=== PATIENT | female | born 1945 | race Caucasian/White ===

== ENCOUNTER 2017-06-12 09:15 | Inpatient (IN) | payer OTHER ==
[2017-06-08 14:37] VITALS: BMI 31.4
[2017-06-12] VITALS (22 sets, daily range): BP systolic 93–158; BP diastolic 44–77; PULSE 52–80; RESP 12–18; Ht 162.6 cm; Wt 83.4 kg
[~2017-06-12] VITALS: Ht 162.6 cm; Wt 83.4 kg
[~2017-06-12 09:15] MED LIST: CEFAZOLIN 2 GM/50 ML (PMX) 50 ML IVPB SCH; LACTATED RINGER'S 1,000 ML IV* SCH; TRANEXAMIC ACID 1,000 MG in NS AT CLOSURE X1 IVPB ONE; TRANEXAMIC ACID 1,000 MG in NS AT INCISION X1 IVPB ONE
--- NOTE | 2017-06-12 09:32 | HPN ---
Date/Time of Note Date/Time of Note DATE: 06/12/17 TIME: 09:32 Interval H&P Admission Note Pt. seen H&P reviewed: No system changes STACEY LOMBARDO PA-C Jun 12, 2017 09:32
[2017-06-12] MEDS ORDERED: MAXZ25 PO (09:44)
[2017-06-12] MEDS ORDERED: CITA20TA11 PO (09:44)
[2017-06-12] MEDS ORDERED: OXYB10TA6 PO (09:45)
[2017-06-12] MEDS ORDERED: LORA1TAB PO (09:45)
[2017-06-12] MEDS ORDERED: LYRI100 PO (09:46)
[2017-06-12] MEDS ORDERED: MIRT30TA5 PO (09:47)
[2017-06-12] MEDS ORDERED: MULTI PO (09:51)
[2017-06-12] MEDS ORDERED: FERGON PO (09:52)
[2017-06-12] MEDS ORDERED: POLYMYXIN/BACITRACIN 1L IRRIG ONE (11:51)
[2017-06-12] MEDS ORDERED: morphine SULFATE/PF (10 MG/10 ML) INJ ONE (11:51)
[2017-06-12] MEDS ORDERED: BUPIVACAINE 0.5%/EPI (SDV) 30 ML INJ ONE (11:51)
[2017-06-12] MEDS ORDERED: KETOROLAC 30 MG INJ ONE (11:51)
[2017-06-12] MEDS ORDERED: LABETALOL HCL 20MG INJ IV PRN (12:00)
[2017-06-12] MEDS ORDERED: METOCLOPRAMIDE 10 MG INJ IV PRN (12:00)
[2017-06-12] MEDS ORDERED: OXYCODONE/ACETAMINOPHEN (5/325) TAB PO PRN ×2 (12:00)
[2017-06-12] MEDS ORDERED: MEPERIDINE 25 MG INJ IV PRN (12:00)
[2017-06-12] MEDS ORDERED: FENTAnyl 50 MCG/ML VIAL IV PRN ×3 (12:00)
[2017-06-12] MEDS ORDERED: EPHEDrine SULFATE 50 MG/5 ML SYG IV PRN (12:00)
[2017-06-12] MEDS ORDERED: KETOROLAC 30 MG INJ IV PRN (12:00)
[2017-06-12] MEDS ORDERED: hydrALAzine 20 MG INJ IV PRN (12:00)
[2017-06-12] MEDS ORDERED: HYDROmorphONE (0.2 MG/ML) 10ML SYG IV PRN ×3 (12:00)
[2017-06-12] MEDS ORDERED: DIPHENHYDRAMINE 50 MG INJ IV PRN (12:00)
[2017-06-12] MEDS ORDERED: ONDANSETRON 4 MG INJ IV PRN (12:00)
[2017-06-12] MEDS ORDERED: MIDAZOLAM 1 MG/ML 2 ML INJ ONE (12:17)
[2017-06-12] MEDS ORDERED: FENTAnyl 50 MCG/ML VIAL ONE (12:18)
[2017-06-12] MEDS ORDERED: PHENYLephrine (100 MCG/ML) 5ML SYG ONE (12:25)
[2017-06-12] MEDS ORDERED: ROCURONIUM 50 MG INJ ONE (12:41)
[2017-06-12] MEDS ORDERED: PROPOFOL 100 ML ONE (12:41)
[2017-06-12] MEDS ORDERED: LIDOCAINE 2% (SDV) 5 ML INJ ONE (12:42)
[2017-06-12] MEDS ORDERED: DEXAMETHASONE 4 MG/ML 1 ML INJ ONE (12:42)
[2017-06-12] MEDS ORDERED: NEOSTIGMINE 3 MG/3 ML SYRINGE ONE (14:30)
[2017-06-12] MEDS ORDERED: ONDANSETRON 4 MG INJ ONE (14:30)
[2017-06-12] MEDS ORDERED: GLYCOPYRROLATE 0.4 MG INJ ONE (14:31)
--- NOTE | 2017-06-12 14:43 | SIPON ---
Date/Time of Note Date/Time of Note DATE: 06/12/17 TIME: 14:38 Operative Report Preoperative Diagnosis acetabular arthritis s/p hemiarthroplasty Postoperative Diagnosis same Operation/Procedure Performed right hip hemiarthroplasty conversion to total hip arthroplasty Surgeon Wilian Talbert MD information assistant Ramon Lewis PA Anesthesia: spinal Estimated blood loss: 150 - 200 ml's Transfusion Required none Specimen culture swab right synovial fluid Grafts/Implants explant S&N bipolar femoral head Implant S&N R3 56mm 36 mm CoCr femoral head 2 acetabular screws Complications none AIDAN GILLESPIE MD Jun 12, 2017 14:43
--- NOTE | 2017-06-12 14:46 | OPR ---
Date/Time of Note Date/Time of Note DATE: 06/12/17 TIME: 14:38 Operative Report Procedure Date: Jun 12, 2017 Preoperative Diagnosis Right failed hemiarthroplasty Postoperative Diagnosis same Operation/Procedure Performed revision of right hip replacement Surgeon see signature line Mushroom Packer Geraldo Malhotra Anesthesia Type: spinal Anesthesiologist: JENNIFER PAREDES Estimated Blood Loss: 150 - 200 ml's Transfusion none Specimen cultures Grafts/Implants Martinez [employer]hew 56 cup, 36 head Complications none Pt Condition Post Procedure: stable Indications painful right hip hemiarthroplasty Procedure Description Revision of right hip hemiarthroplasty to total hip replacement. Patient was placed supine on the operating room table. The right hip was prepped and draped in usual manner. This is a 71-year-old female who has a painful right hip hemiarthroplasty that is being converted to a right total hip replacement. Right hip was approached anteriorly. The plane between the sartorius and tensor fascia jose ramon was developed in a blunt fashion. Branches of the circumflex vessels were identified and cauterized with Aquamantis. The hip capsule was then opened. The capsule was thickened due to previous surgery. Cultures were obtained from the synovial fluid of the right hip. Hemiarthroplasty was noted to be intact. There is evidence of polyethylene wear and surrounding tissue reaction with granulation tissue. There is no evidence of infection. The femoral head was removed by distracting the hip. The stem was found to be well fixed. The proximal portion of the stem was retracted posteriorly and the acetabulum exposed. Acetabular reaming was done with Martinez [employer] Nephew reamers up to a size 55. A 56 trial cup was placed and found to be well fitting. 2 screws were used in the cup to enhance fixation. This was an R3 cup that was placed in 45 of abduction and 20-23 of anteversion. Alignment was placed to accommodate a 36 mm femoral head. A 36 mm cobalt chrome head was placed to complete the hip revision. The hip was reduced and found to be stable. X-rays were obtained to confirm placement of the implants and leg length. It was noted that the leg length was slightly longer but this was accepted due to excellent stability of the hip. The wound was then irrigated and injected with Marcaine with epinephrine along with Toradol. The wound was closed in layers using #1 Vicryl for arthrotomy and fascia 2-0 Vicryl for subcutaneous tissue and 3-0 Monocryl for the skin. Patient was transferred to the recovery room in stable condition JOSE LEO Jun 12, 2017 14:46
[2017-06-12] MEDS ORDERED: NACL 0.9% 3 ML SYG IV SCH (15:00)
[2017-06-12] MEDS ORDERED: ASPIRIN (EC) 325 MG TAB PO ONE (15:00)
[2017-06-12] MEDS ORDERED: DIPHENHYDRAMINE 50 MG INJ IM PRN (15:00)
[2017-06-12] MEDS ORDERED: MEPERIDINE 10 MG/ML 30 ML PCA IV PRN (15:00)
[2017-06-12] MEDS ORDERED: KETOROLAC 15 MG INJ IV PRN (15:00)
[2017-06-12] MEDS ORDERED: MAGNESIUM HYDROXIDE 30ML CUP PO PRN (15:00)
[2017-06-12] MEDS ORDERED: BISACODYL 10 MG SUPP PR PRN (15:00)
[2017-06-12] MEDS ORDERED: DOCUSATE SODIUM 100 MG CAP PO ONE (15:00)
[2017-06-12] MEDS ORDERED: BETHANECHOL 25 MG TAB PO PRN (15:00)
[2017-06-12] MEDS ORDERED: NALOXONE (0.4 MG/ML) INJ IV PRN (15:00)
[2017-06-12] MEDS ORDERED: SENNA/DOCUSATE NA (8.6MG/50MG) TAB PO PRN (15:00)
[2017-06-12] MEDS ORDERED: HYDROmorphONE 0.2 MG/ML PCA IV PRN (15:00)
[2017-06-12] MEDS ORDERED: NA PHOSPHATE/BIPHOS 133 ML ENEMA PR PRN (15:00)
--- NOTE | 2017-06-12 15:40 | CONS ---
Date/Time of Note Date/Time of Note DATE: 06/12/17 TIME: 15:37 Assessment/Plan Assessment/Plan Chief Complaint/Hosp Course Impression and plan 1. Right hip arthritis status post hemiarthroplasty with conversion to total arthroplasty. Continue postoperative. Physical therapy per surgeon. Analgesics as needed. Will also provide antiemetics. Monitor H&H and for signs and symptoms of infection. 2. iron Deficiency anemia. Follow-up on iron profile. Follow-up on CBC. 3. Arthritis. Continue analgesics as needed. Physical therapy to follow her surgeon with limitations. consultation process time: 30 minutes Discussed plan of care with Dr. Hunter Problems: Consultation Date/Type/Reason Admit Date/Time Jun 12, 2017 at 09:15 Hx of Present Illness This 71-year-old female with history of iron deficiency, arthritis, came to [facility] for elective surgery for right hip DJD. Patient did undergo right-sided hemiarthroplasty with conversion to total right hip arthroplasty with good response. Labs currently pending at this time. Overall vital signs remained stable. Patient alert and oriented. No signs or symptoms of distress. We will evaluate her for the aformentiond issues. 12 point review of systems obtained and entirely negative except that mentioned in the history of present illness Past Medical History Medical/surgical history 1. Iron deficiency anemia 2. Arthritis Social History Smoking Status: Never smoker Exam/Review of Systems Vital Signs Vitals Vital Signs Date Time Temp Pulse Resp B/P Pulse Ox O2 Delivery O2 Flow Rate FiO2 06/12/17 15:22 58 12 103/57 95 Room Air 06/12/17 14:55 98.4 Exam Constitutional: alert, oriented Psych: nl mood/affect Head: normocephalic Eyes: nl conjunctiva Respiratory: clear to auscultation, normal air movement Cardiovascular: regular rate and rhythm Gastrointestinal: non-tender, soft Musculoskeletal: other (Status post surgical intervention with dressing on right hip clean dry and intact. No ecchymosis or hematoma noted.) Extremities: normal pulses Neurological: TOP CLEANER II-XII intact, nl mental status, nl speech Skin: nl turgor Medications Medications Current Medications Lactated Ringer's 1,000 ml @ 25 mls/hr Q24H IV* ; Start 06/12/17 at 06:00; Stop 06/13/17 at 21:59 Cefazolin Sodium/ Dextrose 50 ml @ 100 mls/hr PREOP IVPB ; Start 06/12/17 at 06:00; Stop 06/12/17 at 16:00 Dextrose/Lactated Ringer's (D5-Lr) 1,000 ml @ 80 mls/hr [id number] IV ; Start 06/19 at 15:00 Hydromorphone HCl (Dilaudid DELIVERY DIRECTOR) Q4PCA PRN IV SEVERE PAIN 8-10; Start at 15:00; Stop 06/13/17 at 09:00 Meperidine HCl (Demerol DELIVERY DIRECTOR) Q4PCA PRN IV SEVERE PAIN 8-10; Start 06/12/17 at 15:00; Stop 06/13/17 at 09:00 Oxycodone HCl (Roxicodone) 20 mg Q3H PRN PO PAIN LEVEL 8-10; Start 06/13/17 at 09:00 Oxycodone HCl (Roxicodone) 10 mg Q3H PRN PO PAIN LEVEL 4-7; Start 06/13/17 at 09:00 Oxycodone HCl 5 mg 5 mg Q3H PRN PO PAIN LEVEL 1-3; Start 06/13/17 at 09:00 Acetaminophen (Ofirmev 1000mg/ 100ml Iv) 100 ml @ 400 mls/hr Q8H IVPB ; Start 06/12/17 at 15:00; Stop 06/14/17 at 07:14 Zolpidem Tartrate (Ambien) 5 mg HS PRN PO INSOMNIA; Start 06/12/17 at 15:00 Ondansetron HCl 4 mg 4 mg Q6H IV ; Start 06/12/17 at 15:00; Stop 06/13/17 at 09:01 Cefazolin Sodium (Ancef 1 Gm/50 ml (Pmx)) 50 ml @ 100 mls/hr Q8H IVPB ; Start 06/12/17 at 15:00; Stop 06/13/17 at 07:29 Aspirin (Ecotrin) 325 mg DAILY PO ; Start 06/13/17 at 09:00; Stop 06/16/17 at 08:59 Dexamethasone (Decadron) 4 mg DAILY@07 IV ; Start 06/13/17 at 07:00; Stop at 06:59 Pantoprazole (Protonix Tab) 40 mg DAILY@06 PO ; Start 06/13/17 at 06:00 Docusate Sodium/ Ferrous Fumarate (Bravo-Sequels) 1 tab BID PO ; Start at 09:00 Docusate Sodium (Colace) 200 mg BID PO ; Start 06/13/17 at 09:00; Stop at 21:01 Simethicone (Mylicon) 80 mg TID PRN PO DISTENSION/GAS/BLOATING; Start at 15:00 Senna/Docusate Sodium (Senokot-S) 2 tab BID PRN PO CONSTIPATION; Start at 15:00 Magnesium Hydroxide (Milk Of Mag) 30 ml HS PRN PO CONSTIPATION; Start at 15:00 Bisacodyl (Dulcolax Supp) 10 mg DAILY PRN [place] CONSTIPATION; Start 06/12/17 at 15:00 Sodium Biphosphate/ Sodium Phosphate (Fleet Enema) 133 ml DAILY PRN [place] CONSTIPATION; Start 06/12/17 at 15:00 Diphenhydramine HCl (Benadryl) 25 mg Q4H PRN IM ITCHING OR RASH; Start at 15:00 Ketorolac Tromethamine (Toradol) 15 mg Q6 PRN IV PAIN; Start 06/12/17 at 15:00 ; Stop 06/16/17 at 14:59 Bupivacaine HCl/ Epinephrine Bitart (Marcaine 0.25%/ Epi (Sdv) 30 ml) 20 ml DAILY@06 PRN INJ ADMINSTER BY SURGEON ONLY; Start 06/13/17 at 06:00; Stop at 05:59 Naloxone HCl (Narcan) 0.2 mg Q2M PRN IV DECREASED REPIRATORY RATE; Start at 15:00 Gabapentin (Neurontin) 100 mg TID GTB ; Start 06/12/17 at 21:00; Stop at 20:59 Citalopram Hydrobromide (Celexa) 20 mg DAILY PO ; Start 06/13/17 at 09:00; Status UNV Ferrous Gluconate (Fergon) 325 mg DAILY PO ; Start 06/13/17 at 09:00; Status UNV Lorazepam (Ativan) 1 mg BID PRN PO ANXIETY; Start 06/12/17 at 15:30; Status UNV Mirtazapine (Remeron) 22.5 mg HS PO ; Start 06/12/17 at 21:00; Status UNV Multivitamins Therapeutic (Theragran) 1 tab DAILY PO ; Start 06/13/17 at 09:00 ; Status UNV Oxybutynin Chloride (Ditropan Xl) 10 mg DAILY PO ; Start 06/13/17 at 09:00; Status UNV Pregabalin (Lyrica) 100 mg BID PO ; Start 06/12/17 at 21:00; Status UNV SHONDA BEDOLLA Jun 12, 2017 15:40
[2017-06-12] MEDS: ACETAMINOPHEN 1000MG/100ML IV 100 ML IVPB SCH ×2 (15:42→23:00)
[2017-06-12] MEDS: CEFAZOLIN 1 GM/50 ML (PMX) 50 ML IVPB SCH (15:42)
[2017-06-12] MEDS: ONDANSETRON 4 MG INJ IV SCH ×2 (15:43→21:00)
[2017-06-12] MEDS: DOCUSATE SODIUM 100 MG CAP PO SCH (15:43)
[2017-06-12] MEDS: DEXTROSE 5%-LR 1,000 ML IV SCH (15:43)
--- NOTE | 2017-06-12 17:10 | RADRPT ---
PROCEDURE: XR Right Hip. CLINICAL INDICATION: Right hip pain. Intraoperative. TECHNIQUE: Two views. Frontal at 1403 hours and frontal and 1420 hours. COMPARISON: No prior studies are available for comparison. FINDINGS: Images demonstrate placement of a total right hip arthroplasty. This appears to be in satisfactory p osition. There are mild degenerative changes of the left hip with osteophytes noted. There is gas in the soft tissues of the right hip related to the surgery. The upper pelvis is not included on the image. IMPRESSION: 1. Satisfactory intraoperative imaging of the right hip. 2. Mild degenerative changes of the left hip. RPTAT: QQ .Pascual Villanueva MD, MD Date Time Electronically viewed and signed by .Pascual Villanueva MD, on 06/12/2017 17:09 .R/
[2017-06-12] MEDS ORDERED: TRANEXAMIC ACID 830 MG in SOD CHLORIDE 0.9% 100 ML IVPB ONE ×2 (18:00→21:00)
[2017-06-12] MEDS ORDERED: oxyCODONE 5 MG TAB PO PRN (20:00)
[2017-06-12] MEDS: oxyCODONE 5 MG TAB PO PRN ×2 (20:18→23:50)
[2017-06-12] MEDS: MIRTAZAPINE 15 MG TAB PO SCH (20:59)
[2017-06-12] MEDS: GABAPENTIN 100 MG CAP GTB SCH (20:59)
[2017-06-12] MEDS: LORAZEPAM 0.5 MG TAB PO PRN (23:50)
[2017-06-12] MEDS: PREGABALIN 100 MG CAP PO SCH (23:50)
[2017-06-12] MEDS: ZOLPIDEM 5 MG TAB PO PRN (23:50)
[2017-06-13] MEDS: CEFAZOLIN 1 GM/50 ML (PMX) 50 ML IVPB SCH ×2 (00:09→06:01)
[2017-06-13 02:00] VITALS: BP 106/59; RESP 19
[2017-06-13] MEDS: ONDANSETRON 4 MG INJ IV SCH ×2 (03:33→09:16)
[2017-06-13] MEDS: DEXTROSE 5%-LR 1,000 ML IV SCH ×2 (03:36→16:00)
[2017-06-13 05:05] LABS: BASOPHILS % 0.1 % (0.0-2.0); HEMATOCRIT 25.7 % (37.0-47.0); HEMOGLOBIN 8.6 g/dl (12.0-16.0); LYMPHOCYTES # 0.9 10^3/ul (0.8-2.9); MEAN CORPUSCULAR HEMOGLOBIN 30.4 pg (29.0-33.0); MEAN CORPUSCULAR HGB CONC 33.5 g/dl (32.0-37.0); MEAN CORPUSCULAR VOLUME 90.8 fl (82.0-101.0); MEAN PLATELET VOLUME 10.6 fl (7.4-10.4); MONOCYTE # 0.6 10^3/ul (0.3-0.9); MONOCYTES % 6.2 % (0.0-11.0); NEUTROPHIL # 7.6 10^3/ul (1.6-7.5); NEUTROPHILS % 83.2 % (39.0-77.0); PLATELET COUNT 162 10^3/UL (140-415); RED BLOOD COUNT 2.83 10^6/ul (4.20-5.40); RED CELL DISTRIBUTION WIDTH 14.7 % (11.5-14.5); WHITE BLOOD COUNT 9.2 10^3/ul (4.8-10.8)
[2017-06-13 05:22] LABS: IRON 10 ug/dl (35-150)
[2017-06-13 05:26] LABS: ALBUMIN 3.2 g/dl (3.3-4.9); ALBUMIN/GLOBULIN RATIO 0.94; BILIRUBIN,INDIRECT 0.1 mg/dl (0-1.1); BILIRUBIN,TOTAL 0.1 mg/dl (0.2-1.3); CREATININE 1.3 mg/dl (0.44-1.00); POTASSIUM 4.5 mmol/L (3.5-5.1); TOTAL PROTEIN 6.6 g/dl (6.1-8.1)
[2017-06-13 05:32] LABS: TOTAL IRON BINDING CAPACITY 295 ug/dl (241-421)
[2017-06-13 05:43] LABS: T3 UPTAKE 37.5 % (23.5-40.5)
[2017-06-13] MEDS ORDERED: DEXAMETHASONE 4 MG/ML 1 ML INJ ONE (05:54)
[2017-06-13] MEDS: PANTOPRAZOLE (EC) 40 MG TAB PO SCH (06:00)
[2017-06-13] MEDS ORDERED: BUPIVACAINE 0.25%/EPI (SDV) 30 ML INJ INJ PRN (06:00)
[2017-06-13] MEDS: DEXAMETHASONE 4 MG/ML 1 ML INJ IV SCH (06:01)
[2017-06-13] MEDS: ACETAMINOPHEN 1000MG/100ML IV 100 ML IVPB SCH ×3 (06:01→23:25)
[2017-06-13 06:40] LABS: CHOL/HDL RATIO 4.3 RATIO
--- NOTE | 2017-06-13 07:42 | PN ---
Date/Time of Note Date/Time of Note DATE: 06/13/17 TIME: 07:39 Assessment/Plan VTE Prophylaxis VTE Prophylaxis Intervention: ambulation, SCD's, other (Aspirin 325 mg daily) Lines/Catheters IV Catheter Type (from Nrsg): Peripheral IV Flood in Place (from Nrsg): No Assessment/Plan Assessment/Plan -Pain Meds as needed -Dresing intact. -OOB with PT -ASA/SCDs for DVT Prophylaxis -Continue monitoring with Internal Medicine -Patient Stable -Plan is to DC home tomorrow pending no complications . Subjective 24 Hr Interval Summary 71-year-old female postop day 1 status post right failed hemiarthroplasty with conversion to right total hip arthroplasty. Patient is yet to initiate physical therapy. Denies any significant pain overnight. Overall, patient is comfortable with no complaints at time of exam. Plan is to initiate physical therapy today. Denies any complications to the wound since surgery. Exam/Review of Systems Vital Signs Vitals Vital Signs Date Time Temp Pulse Resp B/P Pulse Ox O2 Delivery O2 Flow Rate FiO2 06/13/17 02:00 97.4 68 19 106/59 94 06/12/17 18:42 Room Air Intake and Output 06/12/17 06/12/17 06/13/17 15:00 23:00 07:00 Intake Total 1200 ml 598.3 ml 1050 ml Output Total 200 ml 0 ml Balance 1000 ml 598.3 ml 1050 ml Exam Free Text/Dictation -Incision: Clean, Dry and Intact without any redness or drainage -Thigh soft -5/5 Quadriceps, Tibialis Anterior, EHL Gastrocnemius/Soleus and Peroneals -Normal Sensation -Palpable DP/PT, Capillary Refill <2 secs -No Distal Edema -Negative Tina Sign/No calf pain -Toes Freely Movable Constitutional: alert, oriented, well developed Results Result Diagram: 06/13/17 0431 06/13/17 043 STACEY LOMBARDO PA-C Jun 13, 2017 07:42
--- NOTE | 2017-06-13 07:44 | PDOCDIS ---
Discharge Instructions DIAGNOSIS Discharge Diagnosis Status post hip hemiarthroplasty conversion to total hip arthroplasty CONDITION Patient Condition: Stable HOME CARE INSTRUCTIONS: Diet Instructions: RegularSpecial Diet: REGULAR ACTIVITY: Activity Restrictions: Slowly Increase Activity Rest between Activity Avoid heavy lifting No Sexual Activity Do not Drive Do not operate Machinery Do not operate Power Tool Avoid Heavy Housework Keep Limb Elevated (With use of cold therapy as well.) Weight Bearing (As tolerated. May use front wheeled walker for assisted ambulation if needed.) Bathing Restrictions: Shower (Keep Mepilex dressing on without changing until postoperative appointment unless there is any complication. Follow-up sooner if there is any wound complication.) FOLLOW UP/APPOINTMENTS Follow-up Plan Follow-up on postoperative appointment given at your previous preoperative exam. STACEY LOMBARDO PA-C Jun 13, 2017 07:44
[2017-06-13 08:00] VITALS: BP 95/53; RESP 20
[2017-06-13] MEDS: PREGABALIN 100 MG CAP PO SCH ×2 (08:02→20:42)
[2017-06-13] MEDS: oxyCODONE 5 MG TAB PO PRN ×4 (08:02→23:27)
[2017-06-13] MEDS ORDERED: oxyCODONE 5 MG TAB PO PRN ×3 (09:00)
[2017-06-13] MEDS ORDERED: CELECOXIB 200 MG CAP PO SCH (09:00)
[2017-06-13] MEDS: FERROUS GLUCONATE (EC) 325 MG TAB PO SCH (09:14)
[2017-06-13] MEDS: FERROUS FUMARATE (SR) TAB PO SCH ×2 (09:14→20:42)
[2017-06-13] MEDS: CITALOPRAM 20 MG TAB PO SCH (09:15)
[2017-06-13] MEDS: ASPIRIN (EC) 325 MG TAB PO SCH (09:15)
[2017-06-13] MEDS: DOCUSATE SODIUM 100 MG CAP PO SCH ×2 (09:15→20:42)
[2017-06-13] MEDS: MULTIVITAMINS THERAPEUTIC TAB PO SCH (09:15)
[2017-06-13] MEDS: GABAPENTIN 100 MG CAP GTB SCH ×3 (09:16→20:42)
[2017-06-13] MEDS: OXYBUTYNIN (XL) 5 MG TAB PO SCH (09:16)
[2017-06-13 13:30] VITALS: BP 105/55; RESP 18
[2017-06-13] MEDS: SOD CHLORIDE 0.9% 1,000 ML IV SCH (14:43)
--- NOTE | 2017-06-13 14:48 | PN ---
Date/Time of Note Date/Time of Note DATE: 06/13/17 TIME: 14:41 Assessment/Plan VTE Prophylaxis VTE Prophylaxis Intervention: SCD's Lines/Catheters IV Catheter Type (from Nrs): Peripheral IV Urinary Cath still in place: No Assessment/Plan Chief Complaint/Hosp Course Impression and plan 1. Right hip arthritis status post hemiarthroplasty with conversion to total arthroplasty. Continue postoperative. continue physical therapy and analgesics 2. iron Deficiency anemia. continue with iron supplement 3. Arthritis. Continue analgesics as needed. Physical therapy to follow her surgeon with limitations. 4. kelly. start on iv hydration. monitor renal panel Disposition and plan: Noted with acute renal insufficiency. Start on IV hydration. Monitor renal panel. DC planning Discussed plan of care with Dr. Hunter Problems: Subjective 24 Hr Interval Summary Free Text/Dictation no s/s of distress. comfortable at present less pain reported on right hip Exam/Review of Systems Vital Signs Vitals Vital Signs Date Time Temp Pulse Resp B/P Pulse Ox O2 Delivery O2 Flow Rate FiO2 06/13/17 13:30 97.6 74 18 105/55 97 06/12/17 18:42 Room Air Intake and Output 06/12/17 06/12/17 06/13/17 14:59 22:59 06:59 Intake Total 1200 ml 598.3 ml 1050 ml Output Total 200 ml 0 ml Balance 1000 ml 598.3 ml 1050 ml Exam Constitutional: alert, oriented Psych: nl mood/affect Head: normocephalic Eyes: nl conjunctiva Respiratory: clear to auscultation, normal air movement Cardiovascular: regular rate and rhythm Gastrointestinal: non-tender, soft Musculoskeletal: other (Status post surgical intervention with dressing on right hip clean dry and intact. No ecchymosis or hematoma noted.) Extremities: normal pulses Neurological: BATH ATTENDANT II-XII intact, nl mental status, nl speech Skin: nl turgor Results Result Diagram: 06/13/1743006/13/17 043 Results 24 hrs Laboratory Tests Test 06/13/17 04:30 06/13/17 04:31 Iron Level 10 L Total Iron Binding Capacity 295 Percent Iron Saturation 3 L White Blood Count 9.2 Red Blood Count 2.83 L Hemoglobin 8.6 L Hematocrit 25.7 L Mean Corpuscular Volume 90.8 Mean Corpuscular Hemoglobin 30.4 Mean Corpuscular Hemoglobin Concent 33.5 Red Cell Distribution Width 14.7 H Platelet Count 162 Mean Platelet Volume 10.6 H Neutrophils % 83.2 H Lymphocytes % 10.0 L Monocytes % 6.2 Eosinophils % 0.0 Basophils % 0.1 Nucleated Red Blood Cells % 0.0 Neutrophils # 7.6 H Lymphocytes # 0.9 Monocytes # 0.6 Eosinophils # 0.0 Basophils # 0.0 Nucleated Red Blood Cells # 0.0 Sodium Level 135 Potassium Level 4.5 Chloride Level 105 Carbon Dioxide Level 24 Anion Gap 11 Blood Urea Nitrogen 19 Creatinine 1.30 H Glucose Level 136 Calcium Level 9.0 Total Bilirubin 0.1 L Direct Bilirubin 0.00 Indirect Bilirubin 0.1 Aspartate Amino Transf (AST/SGOT) 28 Alanine Aminotransferase (ALT/SGPT) 34 Alkaline Phosphatase 49 Total Protein 6.6 Albumin 3.2 L Globulin 3.40 H Albumin/Globulin Ratio 0.94 Triglycerides Level 106 Cholesterol Level 189 LDL Cholesterol, Calculated 125 HDL Cholesterol 43 Cholesterol/HDL Ratio 4.3 Free Thyroxine Index 1.46 Thyroxine (T4) 3.9 L Triiodothyronine (T3) Uptake 37.5 Medications Medications Current Medications Lactated Ringer's 1,000 ml @ 25 mls/hr Q24H IV* ; Start 06/12/17 at 06:00; Stop 06/13/17 at 21:59 Dextrose/Lactated Ringer's 1,000 ml @ 80 mls/hr [id number] IV Last administered on 06/13/17 03:36; Admin Dose 80 MLS/HR; Start 06/12/17 at 15:00 Acetaminophen (Ofirmev 1000mg/ 100ml Iv) 100 ml @ 400 mls/hr Q8H IVPB Last administered on 06/13/17 14:39; Admin Dose 400 MLS/HR; Start 06/12/17 at 15: 00; Stop 06/14/17 at 07:14 Zolpidem Tartrate (Ambien) 5 mg HS PRN PO INSOMNIA Last administered on 23:50; Admin Dose 5 MG; Start 06/12/17 at 15:00 Aspirin (Ecotrin) 325 mg DAILY PO Last administered on 06/13/17 09:15; Admin Dose 325 MG; Start 06/13/17 at 09:00; Stop 06/16/17 at 08:59 Dexamethasone (Decadron) 4 mg DAILY@07 IV Last administered on 06/13/17 06:01 ; Admin Dose 4 MG; Start 06/13/17 at 07:00; Stop 06/16/17 at 06:59 Pantoprazole (Protonix Tab) 40 mg DAILY@06 PO Last administered on 06/13/17 06:00; Admin Dose 40 MG; Start 06/13/17 at 06:00 Docusate Sodium/ Ferrous Fumarate (Bravo-Sequels) 1 tab BID PO Last administered on 06/13/17 09:14; Admin Dose 1 TAB; Start 06/13/17 at 09:00 Docusate Sodium (Colace) 200 mg BID PO Last administered on 06/13/17 09:15; Admin Dose 200 MG; Start 06/13/17 at 09:00; Stop 06/15/17 at 21:01 Simethicone (Mylicon) 80 mg TID PRN PO DISTENSION/GAS/BLOATING; Start at 15:00 Senna/Docusate Sodium (Senokot-S) 2 tab BID PRN PO CONSTIPATION; Start at 15:00 Magnesium Hydroxide (Milk Of Mag) 30 ml HS PRN PO CONSTIPATION; Start at 15:00 Bisacodyl (Dulcolax Supp) 10 mg DAILY PRN [place] CONSTIPATION; Start 06/12/17 at 15:00 Sodium Biphosphate/ Sodium Phosphate (Fleet Enema) 133 ml DAILY PRN [place] CONSTIPATION; Start 06/12/17 at 15:00 Diphenhydramine HCl (Benadryl) 25 mg Q4H PRN IM ITCHING OR RASH; Start at 15:00 Ketorolac Tromethamine (Toradol) 15 mg Q6 PRN IV PAIN; Start 06/12/17 at 15:00 ; Stop 06/16/17 at 14:59 Bupivacaine HCl/ Epinephrine Bitart (Marcaine 0.25%/ Epi (Sdv) 30 ml) 20 ml DAILY@06 PRN INJ ADMINSTER BY SURGEON ONLY; Start 06/13/17 at 06:00; Stop at 05:59 Naloxone HCl (Narcan) 0.2 mg Q2M PRN IV DECREASED REPIRATORY RATE; Start at 15:00 Gabapentin (Neurontin) 100 mg TID GTB Last administered on 06/13/17 13:38; Admin Dose 100 MG; Start 06/12/17 at 21:00; Stop 06/15/17 at 20:59 Citalopram Hydrobromide (Celexa) 20 mg DAILY PO Last administered on 09:15; Admin Dose 20 MG; Start 06/13/17 at 09:00 Ferrous Gluconate (Fergon) 325 mg DAILY PO Last administered on 06/13/17 09: 14; Admin Dose 325 MG; Start 06/13/17 at 09:00 Lorazepam (Ativan) 1 mg BID PRN PO ANXIETY Last administered on 06/12/17 23: 50; Admin Dose 1 MG; Start 06/12/17 at 16:00 Mirtazapine (Remeron) 22.5 mg HS PO Last administered on 06/12/17 20:59; Admin Dose 22.5 MG; Start 06/12/17 at 21:00 Multivitamins Therapeutic (Theragran) 1 tab DAILY PO Last administered on 06/13 09:15; Admin Dose 1 TAB; Start 06/13/17 at 09:00 Oxybutynin Chloride (Ditropan Xl) 10 mg DAILY PO Last administered on 09:16; Admin Dose 10 MG; Start 06/13/17 at 09:00 Pregabalin (Lyrica) 100 mg BID PO Last administered on 06/13/17 08:02; Admin Dose 100 MG; Start 06/12/17 at 21:00 Oxycodone HCl (Roxicodone) 20 mg Q3H PRN PO PAIN LEVEL 8-10 Last administered on 06/13/17 13:39; Admin Dose 20 MG; Start 06/12/17 at 19:30 Oxycodone HCl (Roxicodone) 10 mg Q3H PRN PO PAIN LEVEL 4-7; Start 06/12/17 at 19:30 Oxycodone HCl 5 mg 5 mg Q3H PRN PO PAIN LEVEL 1-3; Start 06/12/17 at 20:00 Sodium Chloride (NS) 1,000 ml @ 70 mls/hr [id number] IV ; Start 06/13/17 at 14:30 Ferrous Sulfate (Ferrous Sulfate (Ec)) 325 mg TID PO ; Start 06/13/17 at 21:00 SHONDA BEDOLLA Jun 13, 2017 14:48
[2017-06-13 20:00] VITALS: BP 97/52; RESP 19
[2017-06-13] MEDS: MIRTAZAPINE 15 MG TAB PO SCH (20:43)
[2017-06-13] MEDS: FERROUS SULFATE (EC) 325 MG TAB PO SCH (21:00)
[2017-06-13] MEDS: LORAZEPAM 0.5 MG TAB PO PRN (21:45)
[2017-06-13] MEDS: ZOLPIDEM 5 MG TAB PO PRN (22:15)
[2017-06-14 02:00] VITALS: BP 100/53; RESP 19
[2017-06-14] MEDS: oxyCODONE 5 MG TAB PO PRN ×3 (03:44→17:11)
[2017-06-14] MEDS: DEXTROSE 5%-LR 1,000 ML IV SCH ×2 (04:12→17:00)
[2017-06-14] MEDS: SOD CHLORIDE 0.9% 1,000 ML IV SCH ×3 (04:48→18:24)
[2017-06-14] MEDS: DEXAMETHASONE 4 MG/ML 1 ML INJ IV SCH (06:05)
[2017-06-14] MEDS: PANTOPRAZOLE (EC) 40 MG TAB PO SCH (06:05)
[2017-06-14] MEDS: ACETAMINOPHEN 1000MG/100ML IV 100 ML IVPB SCH (06:06)
--- NOTE | 2017-06-14 07:52 | PN ---
Date/Time of Note Date/Time of Note DATE: 06/14/17 TIME: 07:49 Assessment/Plan VTE Prophylaxis VTE Prophylaxis Intervention: ambulation, SCD's, other (ASA 325mg Daily) Lines/Catheters IV Catheter Type (from Nrsg): Peripheral IV Flood in Place (from Nrsg): No Assessment/Plan Assessment/Plan -Pain Meds as needed -ASA for DVT Prophylaxis x 6 weeks outpatient discussed. -Continue monitoring as outpatient on discharge -Follow-up at scheduled postop outpatient appointment or sooner if there is any issue. -Anterior hip precautions discussed -Patient Stable -Discharge to Home with home health Subjective 24 Hr Interval Summary 71-year-old female postop day 2 status post right failed hemiarthroplasty with conversion to total hip arthroplasty. Denies any pain complaints at the current time. Patient did experience some pain overnight that has relieved with pain medication. Patient has initiated physical therapy as she is up and walking throughout the hallways. Denies any fevers, chills or malaise. Denies any chest pain/tightness. Denies any calf pain. Patient doing well and is ready to go home today. Constitutional: improved Pain Control: mild Exam/Review of Systems Vital Signs Vitals Vital Signs Date Time Temp Pulse Resp B/P Pulse Ox O2 Delivery O2 Flow Rate FiO2 06/14/17 02:00 98.4 71 19 100/53 92 06/12/17 18:42 Room Air Intake and Output 06/13/17 06/13/17 06/14/17 15:00 23:00 07:00 Intake Total 1400 ml 1950 ml Balance 1400 ml 1950 ml Exam Free Text/Dictation -No complications with dressing intact. -Thigh soft -5/5 Quadriceps, Tibialis Anterior, EHL Gastrocnemius/Soleus and Peroneals -Normal Sensation -Palpable DP/PT, Capillary Refill <2 secs -No Distal Edema -Negative Tina Sign/No calf pain -Toes Freely Movable Constitutional: alert, oriented, well developed Results Result Diagram: 06/13/17 0431 06/13/17 043 STACEY LOMBARDO PA-C Jun 14, 2017 07:52
[2017-06-14 08:03] VITALS: BP 99/54; RESP 18
[2017-06-14] MEDS: GABAPENTIN 100 MG CAP GTB SCH ×3 (08:41→21:29)
[2017-06-14] MEDS: CITALOPRAM 20 MG TAB PO SCH (08:42)
[2017-06-14] MEDS: MULTIVITAMINS THERAPEUTIC TAB PO SCH (08:42)
[2017-06-14] MEDS: OXYBUTYNIN (XL) 5 MG TAB PO SCH (08:42)
[2017-06-14] MEDS: FERROUS SULFATE (EC) 325 MG TAB PO SCH ×3 (08:42→21:34)
[2017-06-14] MEDS: DOCUSATE SODIUM 100 MG CAP PO SCH ×2 (08:42→21:30)
[2017-06-14] MEDS: FERROUS GLUCONATE (EC) 325 MG TAB PO SCH (08:42)
[2017-06-14] MEDS: FERROUS FUMARATE (SR) TAB PO SCH (08:42)
[2017-06-14] MEDS: ASPIRIN (EC) 325 MG TAB PO SCH (08:42)
[2017-06-14] MEDS: PREGABALIN 100 MG CAP PO SCH ×2 (08:43→21:29)
[2017-06-14 10:51] LABS: BASOPHILS % 0.1 % (0.0-2.0); EOSINOPHILS # 0.1 10^3/ul (0.0-0.5); EOSINOPHILS % 0.7 % (0.0-7.0); HEMATOCRIT 23.8 % (37.0-47.0); HEMOGLOBIN 7.9 g/dl (12.0-16.0); LYMPHOCYTES # 1.2 10^3/ul (0.8-2.9); LYMPHOCYTES % 13.2 % (15.0-51.0); MEAN CORPUSCULAR HEMOGLOBIN 30.7 pg (29.0-33.0); MEAN CORPUSCULAR HGB CONC 33.2 g/dl (32.0-37.0); MEAN CORPUSCULAR VOLUME 92.6 fl (82.0-101.0); MEAN PLATELET VOLUME 10.4 fl (7.4-10.4); MONOCYTE # 0.6 10^3/ul (0.3-0.9); MONOCYTES % 7.1 % (0.0-11.0); NEUTROPHIL # 6.9 10^3/ul (1.6-7.5); NEUTROPHILS % 78.1 % (39.0-77.0); PLATELET COUNT 166 10^3/UL (140-415); RED BLOOD COUNT 2.57 10^6/ul (4.20-5.40); RED CELL DISTRIBUTION WIDTH 15.6 % (11.5-14.5); WHITE BLOOD COUNT 8.9 10^3/ul (4.8-10.8)
--- NOTE | 2017-06-14 13:41 | PN ---
Date/Time of Note Date/Time of Note DATE: 06/14/17 TIME: 13:39 Assessment/Plan VTE Prophylaxis VTE Prophylaxis Intervention: SCD's Lines/Catheters IV [facility]ter Type (from [facility]): Peripheral IV Urinary Cath still in place: No Assessment/Plan Chief Complaint/Hosp Course Impression and plan 1. Right hip arthritis status post hemiarthroplasty with conversion to total arthroplasty. Continue postoperative. Continue physical therapy 2. iron Deficiency anemia. continue iron supplement 3. Arthritis. Continue analgesics as needed. 4. Acute kidney injury. Likely chronic. Improving at present. Continue IV hydration. DISPO/PLAN: DC planning. Improved at present Discussed plan of care with Dr. Hunter Problems: Subjective 24 Hr Interval Summary Free Text/Dictation no s/s of distress comfortable at present Exam/Review of Systems Vital Signs Vitals Vital Signs Date Time Temp Pulse Resp B/P Pulse Ox O2 Delivery O2 Flow Rate FiO2 06/14/17 08:03 98.2 69 18 99/54 90 06/12/17 18:42 Room Air Intake and Output 06/13/17 06/13/17 06/14/17 15:00 23:00 07:00 Intake Total 1400 ml 1950 ml Balance 1400 ml 1950 ml Exam Constitutional: alert, oriented Psych: nl mood/affect Head: normocephalic Eyes: nl conjunctiva Respiratory: clear to auscultation, normal air movement Cardiovascular: regular rate and rhythm Gastrointestinal: non-tender, soft Musculoskeletal: other (Status post surgical intervention with dressing on right hip clean dry and intact. 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, nl mental status, nl speech Skin: nl turgor Results Result Diagram: 06/14/17 1028 06/13/17 0431 Results 24 hrs Laboratory Tests Test 06/14/17 10:28 White Blood Count 8.9 Red Blood Count 2.57 L Hemoglobin 7.9 L Hematocrit 23.8 L Mean Corpuscular Volume 92.6 Mean Corpuscular Hemoglobin 30.7 Mean Corpuscular Hemoglobin Concent 33.2 Red Cell Distribution Width 15.6 H Platelet Count 166 Mean Platelet Volume 10.4 Neutrophils % 78.1 H Lymphocytes % 13.2 L Monocytes % 7.1 Eosinophils % 0.7 Basophils % 0.1 Nucleated Red Blood Cells % 0.0 Neutrophils # 6.9 Lymphocytes # 1.2 Monocytes # 0.6 Eosinophils # 0.1 Basophils # 0.0 Nucleated Red Blood Cells # 0.0 Medications Medications Current Medications Dextrose/Lactated Ringer's (D5-Lr) 1,000 ml @ 80 mls/hr [id number] IV Last administered on 06/13/17 03:36; Admin Dose 80 MLS/HR; Start 06/12/17 at 15:00 Zolpidem Tartrate (Ambien) 5 mg HS PRN PO INSOMNIA Last administered on 22:15; Admin Dose 5 MG; Start 06/12/17 at 15:00 Aspirin (Ecotrin) 325 mg DAILY PO Last administered on 06/14/17 08:42; Admin Dose 325 MG; Start 06/13/17 at 09:00; Stop 06/16/17 at 08:59 Dexamethasone (Decadron) 4 mg DAILY@07 IV Last administered on 06/14/17 06:05 ; Admin Dose 4 MG; Start 06/13/17 at 07:00; Stop 06/16/17 at 06:59 Pantoprazole (Protonix Tab) 40 mg DAILY@06 PO Last administered on 06/14/17 06:05; Admin Dose 40 MG; Start 06/13/17 at 06:00 Docusate Sodium/ Ferrous Fumarate (Bravo-Sequels) 1 tab BID PO Last administered on 06/14/17 08:42; Admin Dose 1 TAB; Start 06/13/17 at 09:00; Status Future Hold Docusate Sodium (Colace) 200 mg BID PO Last administered on 06/14/17 08:42; Admin Dose 200 MG; Start 06/13/17 at 09:00; Stop 06/15/17 at 21:01 Simethicone (Mylicon) 80 mg TID PRN PO DISTENSION/GAS/BLOATING; Start at 15:00 Senna/Docusate Sodium (Senokot-S) 2 tab BID PRN PO CONSTIPATION; Start at 15:00 Magnesium Hydroxide (Milk Of Mag) 30 ml HS PRN PO CONSTIPATION; Start at 15:00 Bisacodyl (Dulcolax Supp) 10 mg DAILY PRN [place] CONSTIPATION; Start 06/12/17 at 15:00 Sodium Biphosphate/ Sodium Phosphate (Fleet Enema) 133 ml DAILY PRN [place] CONSTIPATION; Start 06/12/17 at 15:00 Diphenhydramine HCl (Benadryl) 25 mg Q4H PRN IM ITCHING OR RASH; Start at 15:00 Ketorolac Tromethamine (Toradol) 15 mg Q6 PRN IV PAIN; Start 06/12/17 at 15:00 ; Stop 06/16/17 at 14:59 Bupivacaine HCl/ Epinephrine Bitart (Marcaine 0.25%/ Epi (Sdv) 30 ml) 20 ml DAILY@06 PRN INJ ADMINSTER BY SURGEON ONLY; Start 06/13/17 at 06:00; Stop at 05:59 Naloxone HCl (Narcan) 0.2 mg Q2M PRN IV DECREASED REPIRATORY RATE; Start at 15:00 Gabapentin (Neurontin) 100 mg TID GTB Last administered on 06/14/17 13:11; Admin Dose 100 MG; Start 06/12/17 at 21:00; Stop 06/15/17 at 20:59 Citalopram Hydrobromide (Celexa) 20 mg DAILY PO Last administered on 08:42; Admin Dose 20 MG; Start 06/13/17 at 09:00 Ferrous Gluconate (Fergon) 325 mg DAILY PO Last administered on 06/14/17 08: 42; Admin Dose 325 MG; Start 06/13/17 at 09:00; Status Future Hold Lorazepam (Ativan) 1 mg BID PRN PO ANXIETY Last administered on 06/13/17 21: 45; Admin Dose 1 MG; Start 06/12/17 at 16:00 Mirtazapine (Remeron) 22.5 mg HS PO Last administered on 06/13/17 20:43; Admin Dose 22.5 MG; Start 06/12/17 at 21:00 Multivitamins Therapeutic (Theragran) 1 tab DAILY PO Last administered on 06/14 08:42; Admin Dose 1 TAB; Start 06/13/17 at 09:00 Oxybutynin Chloride (Ditropan Xl) 10 mg DAILY PO Last administered on 08:42; Admin Dose 10 MG; Start 06/13/17 at 09:00 Pregabalin (Lyrica) 100 mg BID PO Last administered on 06/14/17 08:43; Admin Dose 100 MG; Start 06/12/17 at 21:00 Oxycodone HCl (Roxicodone) 20 mg Q3H PRN PO PAIN LEVEL 8-10 Last administered on 06/14/17 03:44; Admin Dose 20 MG; Start 06/12/17 at 19:30 Oxycodone HCl (Roxicodone) 10 mg Q3H PRN PO PAIN LEVEL 4-7 Last administered on 06/14/17 13:15; Admin Dose 10 MG; Start 06/12/17 at 19:30 Oxycodone HCl 5 mg 5 mg Q3H PRN PO PAIN LEVEL 1-3; Start 06/12/17 at 20:00 Sodium Chloride (NS) 1,000 ml @ 70 mls/hr [id number] IV Last administered on 06:06; Admin Dose 70 MLS/HR; Start 06/13/17 at 14:30 Ferrous Sulfate (Ferrous Sulfate (Ec)) 325 mg TID PO Last administered on 06/14 13:11; Admin Dose 325 MG; Start 06/13/17 at 21:00 SHONDA BEDOLLA Jun 14, 2017 13:41
[2017-06-14 15:03] VITALS: BP 106/57; RESP 18
[2017-06-14 16:17] LABS: CALCIUM 8.5 mg/dl (8.4-10.2); CREATININE 1.25 mg/dl (0.44-1.00); POTASSIUM 4.4 mmol/L (3.5-5.1)
[2017-06-14 19:05] VITALS: BP 105/51; RESP 18
[2017-06-14] MEDS: LORAZEPAM 0.5 MG TAB PO PRN (19:27)
[2017-06-14] MEDS: MIRTAZAPINE 15 MG TAB PO SCH (21:28)
[2017-06-14] MEDS: ZOLPIDEM 5 MG TAB PO PRN (21:30)
[2017-06-15 02:05] VITALS: BP 107/55; RESP 18
[2017-06-15 05:15] LABS: BASOPHILS % 0.3 % (0.0-2.0); EOSINOPHILS # 0.2 10^3/ul (0.0-0.5); EOSINOPHILS % 2.8 % (0.0-7.0); HEMATOCRIT 21.8 % (37.0-47.0); HEMOGLOBIN 7.2 g/dl (12.0-16.0); LYMPHOCYTES # 2.7 10^3/ul (0.8-2.9); LYMPHOCYTES % 34.4 % (15.0-51.0); MEAN CORPUSCULAR HEMOGLOBIN 30.4 pg (29.0-33.0); MEAN PLATELET VOLUME 10.5 fl (7.4-10.4); MONOCYTE # 0.5 10^3/ul (0.3-0.9); MONOCYTES % 6.8 % (0.0-11.0); NEUTROPHIL # 4.4 10^3/ul (1.6-7.5); NEUTROPHILS % 55.2 % (39.0-77.0); PLATELET COUNT 165 10^3/UL (140-415); RED BLOOD COUNT 2.37 10^6/ul (4.20-5.40); RED CELL DISTRIBUTION WIDTH 15.6 % (11.5-14.5)
[2017-06-15] MEDS: DEXTROSE 5%-LR 1,000 ML IV SCH (05:30)
[2017-06-15] MEDS: PANTOPRAZOLE (EC) 40 MG TAB PO SCH (06:25)
[2017-06-15] MEDS: DEXAMETHASONE 4 MG/ML 1 ML INJ IV SCH (06:25)
[2017-06-15 07:00] VITALS: BP 128/68; RESP 18
--- NOTE | 2017-06-15 08:28 | PN ---
Date/Time of Note Date/Time of Note DATE: 06/15/17 TIME: 08:23 Assessment/Plan VTE Prophylaxis VTE Prophylaxis Intervention: ambulation, SCD's, other (Aspirin 325 mg 1 tab daily) Lines/Catheters IV Catheter Type (from Nrsg): Saline Lock Flood in Place (from Nrsg): No Assessment/Plan Assessment/Plan -Pain Meds as needed -ASA for DVT Prophylaxis x 30 days outpatient discussed. -Continue monitoring as outpatient on discharge -Follow-up at scheduled postop outpatient appointment or sooner if there is any issue. -Hip precautions discussed -Patient Stable -Patient has a hemoglobin of 7.2 as well as red blood cell count of 2.37. Dr. Talbert was contacted so he was aware of current blood levels, Dr. Talbert has recommended 1 unit of packed red blood cells, repeat labs and if patient levels improve then she may be discharged today. -Discharge to Home with home health after repeat labs and patient has been cleared by internal medicine and physical therapy. Subjective 24 Hr Interval Summary 71-year-old female postop day 3 status post right failed hemiarthroplasty converted to total hip arthroplasty. Patient was performing physical therapy yesterday and had difficulty with balance. Physical therapy and contacted myself stating that patient is not cleared to return home due to on steady gait. Overnight patient denies any complaints. Patient states that pain is minimal and well-controlled. When asked, currently she states that she is not expressing any difficulty in regards to nausea, dizziness or fatigue. Resting comfortably in bed. Constitutional: no complaints Pain Control: well controlled Exam/Review of Systems Vital Signs Vitals Vital Signs Date Time Temp Pulse Resp B/P Pulse Ox O2 Delivery O2 Flow Rate FiO2 06/15/17 07:00 98.7 78 18 128/68 92 06/12/17 18:42 Room Air Intake and Output 06/14/17 06/14/17 06/15/17 15:00 23:00 07:00 Intake Total 350 ml 480 ml Balance 350 ml 480 ml Exam Free Text/Dictation -No complications with dressing intact. -Thigh soft -5/5 Quadriceps, Tibialis Anterior, EHL Gastrocnemius/Soleus and Peroneals -Normal Sensation -Palpable DP/PT, Capillary Refill <2 secs -No Distal Edema -Negative Tina Sign/No calf pain -Toes Freely Movable Constitutional: alert, oriented, well developed Results Result Diagram: 06/15/17 0444 06/14/17 1443 STACEY LOMBARDO PA-C Jun 15, 2017 08:28
[2017-06-15] MEDS: MULTIVITAMINS THERAPEUTIC TAB PO SCH (09:24)
[2017-06-15] MEDS: ASPIRIN (EC) 325 MG TAB PO SCH (09:24)
[2017-06-15] MEDS: SOD CHLORIDE 0.9% 1,000 ML IV SCH (09:24)
[2017-06-15] MEDS: GABAPENTIN 100 MG CAP GTB SCH ×2 (09:24→13:23)
[2017-06-15] MEDS: OXYBUTYNIN (XL) 5 MG TAB PO SCH (09:24)
[2017-06-15] MEDS: FERROUS SULFATE (EC) 325 MG TAB PO SCH ×2 (09:25→13:23)
[2017-06-15] MEDS: DOCUSATE SODIUM 100 MG CAP PO SCH (09:25)
[2017-06-15] MEDS: CITALOPRAM 20 MG TAB PO SCH (09:43)
[2017-06-15] MEDS: PREGABALIN 100 MG CAP PO SCH (09:43)
--- NOTE | 2017-06-15 11:20 | CONS ---
Date/Time of Note Date/Time of Note DATE: 06/15/17 TIME: 11:18 Assessment/Plan Assessment/Plan Additional Assessment/Plan 1. Right hip arthritis status post hemiarthroplasty with conversion to total arthroplasty. Continue postoperative. Continue physical therapy 2. iron Deficiency anemia. continue iron supplement 3. Arthritis. Continue analgesics as needed. 4. Acute kidney injury. Likely chronic. Improving at present. Continue IV hydration. DISPO/PLAN: DC planning today with home health on discharge Consultation Date/Type/Reason Admit Date/Time Jun 12, 2017 at 09:15 Initial Consult Date Referring Provider: JOSE LEO 24 HR Interval Summary Free Text/Dictation STABLE DOING OK, bp STABLE , plan for 1 U PRBC today Exam/Review of Systems Vital Signs Vitals Vital Signs Date Time Temp Pulse Resp B/P Pulse Ox O2 Delivery O2 Flow Rate FiO2 06/15/17 07:00 98.7 78 18 128/68 92 06/12/17 18:42 Room Air Intake and Output 06/14/17 06/14/17 06/15/17 15:00 23:00 07:00 Intake Total 350 ml 480 ml Balance 350 ml 480 ml Exam Constitutional: alert, oriented Psych: nl mood/affect Head: normocephalic Eyes: nl conjunctiva Respiratory: clear to auscultation, normal air movement Cardiovascular: regular rate and rhythm Gastrointestinal: non-tender, soft Musculoskeletal: other (Status post surgical intervention with dressing on right hip clean dry and intact. 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, nl mental status, nl speech Skin: nl turgor Results Result Diagram: 06/15/17 0444 06/14/17 1443 Results 24 hrs Laboratory Tests Test 06/14/17 14:43 06/15/17 04:44 Sodium Level 136 Potassium Level 4.4 Chloride Level 105 Carbon Dioxide Level 23 Anion Gap 12 Blood Urea Nitrogen 20 Creatinine 1.25 H Glucose Level 99 Calcium Level 8.5 White Blood Count 8.0 Red Blood Count 2.37 L Hemoglobin 7.2 L Hematocrit 21.8 L Mean Corpuscular Volume 92.0 Mean Corpuscular Hemoglobin 30.4 Mean Corpuscular Hemoglobin Concent 33.0 Red Cell Distribution Width 15.6 H Platelet Count 165 Mean Platelet Volume 10.5 H Neutrophils % 55.2 Lymphocytes % 34.4 Monocytes % 6.8 Eosinophils % 2.8 Basophils % 0.3 Nucleated Red Blood Cells % 0.0 Neutrophils # 4.4 Lymphocytes # 2.7 Monocytes # 0.5 Eosinophils # 0.2 Basophils # 0.0 Nucleated Red Blood Cells # 0.0 Medications Medications Current Medications Dextrose/Lactated Ringer's (D5-Lr) 1,000 ml @ 80 mls/hr [id number] IV Last administered on 06/13/17 03:36; Admin Dose 80 MLS/HR; Start 06/12/17 at 15:00 Zolpidem Tartrate (Ambien) 5 mg HS PRN PO INSOMNIA Last administered on 21:30; Admin Dose 5 MG; Start 06/12/17 at 15:00 Aspirin (Ecotrin) 325 mg DAILY PO Last administered on 06/15/17 09:24; Admin Dose 325 MG; Start 06/13/17 at 09:00; Stop 06/16/17 at 08:59 Dexamethasone (Decadron) 4 mg DAILY@07 IV Last administered on 06/15/17 06:25 ; Admin Dose 4 MG; Start 06/13/17 at 07:00; Stop 06/16/17 at 06:59 Pantoprazole (Protonix Tab) 40 mg DAILY@06 PO Last administered on 06/15/17 06:25; Admin Dose 40 MG; Start 06/13/17 at 06:00 Docusate Sodium/ Ferrous Fumarate (Bravo-Sequels) 1 tab BID PO Last administered on 06/14/17 08:42; Admin Dose 1 TAB; Start 06/13/17 at 09:00; Status Future Hold Docusate Sodium (Colace) 200 mg BID PO Last administered on 06/15/17 09:25; Admin Dose 200 MG; Start 06/13/17 at 09:00; Stop 06/15/17 at 21:01 Simethicone (Mylicon) 80 mg TID PRN PO DISTENSION/GAS/BLOATING; Start at 15:00 Senna/Docusate Sodium (Senokot-S) 2 tab BID PRN PO CONSTIPATION Last administered on 06/14/17 21:29; Admin Dose 2 TAB; Start 06/12/17 at 15:00 Magnesium Hydroxide (Milk Of Mag) 30 ml HS PRN PO CONSTIPATION; Start at 15:00 Bisacodyl (Dulcolax Supp) 10 mg DAILY PRN [place] CONSTIPATION Last administered on 06/14/17 19:47; Admin Dose 10 MG; Start 06/12/17 at 15:00 Sodium Biphosphate/ Sodium Phosphate (Fleet Enema) 133 ml DAILY PRN [place] CONSTIPATION; Start 06/12/17 at 15:00 Diphenhydramine HCl (Benadryl) 25 mg Q4H PRN IM ITCHING OR RASH; Start at 15:00 Ketorolac Tromethamine (Toradol) 15 mg Q6 PRN IV PAIN; Start 06/12/17 at 15:00 ; Stop 06/16/17 at 14:59 Bupivacaine HCl/ Epinephrine Bitart (Marcaine 0.25%/ Epi (Sdv) 30 ml) 20 ml DAILY@06 PRN INJ ADMINSTER BY SURGEON ONLY; Start 06/13/17 at 06:00; Stop at 05:59 Naloxone HCl (Narcan) 0.2 mg Q2M PRN IV DECREASED REPIRATORY RATE; Start at 15:00 Gabapentin (Neurontin) 100 mg TID GTB Last administered on 06/15/17 09:24; Admin Dose 100 MG; Start 06/12/17 at 21:00; Stop 06/15/17 at 20:59 Citalopram Hydrobromide (Celexa) 20 mg DAILY PO Last administered on 09:43; Admin Dose 20 MG; Start 06/13/17 at 09:00 Ferrous Gluconate (Fergon) 325 mg DAILY PO Last administered on 06/14/17 08: 42; Admin Dose 325 MG; Start 06/13/17 at 09:00; Status Future Hold Lorazepam (Ativan) 1 mg BID PRN PO ANXIETY Last administered on 06/14/17 19: 27; Admin Dose 1 MG; Start 06/12/17 at 16:00 Mirtazapine (Remeron) 22.5 mg HS PO Last administered on 06/14/17 21:28; Admin Dose 22.5 MG; Start 06/12/17 at 21:00 Multivitamins Therapeutic (Theragran) 1 tab DAILY PO Last administered on 06/15 09:24; Admin Dose 1 TAB; Start 06/13/17 at 09:00 Oxybutynin Chloride (Ditropan Xl) 10 mg DAILY PO Last administered on 09:24; Admin Dose 10 MG; Start 06/13/17 at 09:00 Pregabalin (Lyrica) 100 mg BID PO Last administered on 06/15/17 09:43; Admin Dose 100 MG; Start 06/12/17 at 21:00 Oxycodone HCl (Roxicodone) 20 mg Q3H PRN PO PAIN LEVEL 8-10 Last administered on 06/14/17 03:44; Admin Dose 20 MG; Start 06/12/17 at 19:30 Oxycodone HCl (Roxicodone) 10 mg Q3H PRN PO PAIN LEVEL 4-7 Last administered on 06/14/17 17:11; Admin Dose 10 MG; Start 06/12/17 at 19:30 Oxycodone HCl 5 mg 5 mg Q3H PRN PO PAIN LEVEL 1-3; Start 06/12/17 at 20:00 Sodium Chloride (NS) 1,000 ml @ 70 mls/hr [id number] IV Last administered on 06:06; Admin Dose 70 MLS/HR; Start 06/13/17 at 14:30 Ferrous Sulfate (Ferrous Sulfate (Ec)) 325 mg TID PO Last administered on 06/15 09:25; Admin Dose 325 MG; Start 06/13/17 at 21:00 LEIA CHISHOLM MD Jun 15, 2017 11:20
[2017-06-15 14:00] VITALS: BP 103/70; RESP 18
[2017-06-15 15:23] LABS: BASOPHILS % 0.1 % (0.0-2.0); EOSINOPHILS % 0.4 % (0.0-7.0); HEMATOCRIT 26.2 % (37.0-47.0); HEMOGLOBIN 8.7 g/dl (12.0-16.0); LYMPHOCYTES # 1.4 10^3/ul (0.8-2.9); LYMPHOCYTES % 16.9 % (15.0-51.0); MEAN CORPUSCULAR HEMOGLOBIN 30.1 pg (29.0-33.0); MEAN CORPUSCULAR HGB CONC 33.2 g/dl (32.0-37.0); MEAN CORPUSCULAR VOLUME 90.7 fl (82.0-101.0); MEAN PLATELET VOLUME 10.3 fl (7.4-10.4); MONOCYTE # 0.6 10^3/ul (0.3-0.9); MONOCYTES % 7.1 % (0.0-11.0); NEUTROPHIL # 6.2 10^3/ul (1.6-7.5); NEUTROPHILS % 74.9 % (39.0-77.0); PLATELET COUNT 182 10^3/UL (140-415); RED BLOOD COUNT 2.89 10^6/ul (4.20-5.40); RED CELL DISTRIBUTION WIDTH 15.6 % (11.5-14.5); WHITE BLOOD COUNT 8.3 10^3/ul (4.8-10.8)
--- NOTE | 2017-06-15 15:42 | DS ---
Date/Time of Note Date/Time of Note DATE: 06/15/17 TIME: 15:39 Discharge Summary Admission/Discharge Info Admit Date/Time Jun 12, 2017 at 09:15 Discharge Date/Time Discharge Diagnosis Status post hip hemiarthroplasty conversion to total hip arthroplasty Patient Condition: Stable Hospital Course On the day of admission, the patient underwent Conversion of failed right hemiarthroplasty to right total hip arthroplasty Intraoperative complications: None Postoperative complications: None The patient was given prophylactic antibiotics and anticoagulants. On the day of surgery and first postoperative day patient was started on gait training and was taught usual restrictions following Anterior hip replacement On postoperative day 1 dressing was clean dry and intact. No complications were observed. Patient was originally scheduled to be discharged home on postoperative day 2 but due to instability and concern regarding gait, physical therapy was not comfortable discharging patient home to prevent any risk of injury. On the day of discharge, the wound was clean and healing well; there was no sign of infection. Patient was having a decreased hemoglobin of 7.2 and a red blood cell count of 2.7. This was discussed with Dr. Talbert who recommended 1 unit of packed red blood cells. Hemoglobin had improved to above 8 as desired. Then given the okay to be discharged home. Wound care instructions were discussed with the patient. Discharge Temperature: 98.7 Discharge White Blood Cell Count: 8.3 Discharge Hemoglobin: 8.7 The patient was discharged home with home health. Arrangements were made for visiting nurses and home health/physical therapy. The patient will be seen in office at scheduled postoperative evaluation date given on their preoperative exam. Should patient complain of any problems prior to scheduled postoperative evaluation date, they may call into outpatient clinic to determine if they need to be scheduled at sooner appointment to be seen immediately if needed. Discharge medications: As per medication reconciliation form Diet: Same as preadmission diet. This is Stacey Welsh PA-C dictating discharge summary for Dr. Talbert. Home Meds Reported Medications Ferrous Gluconate* (Fergon*) 325 Mg Tab, 325 MG PO DAILY, TAB 06/12/17 Multivitamins* (Theragran*) 1 Tab Tab, 1 TAB PO DAILY, TAB 06/12/17 Mirtazapine* (Mirtazapine*) 30 Mg Tablet, 22.5 MG PO HS, TAB 06/12/17 Pregabalin* (Lyrica*) 100 Mg Capsule, 100 MG PO BID, CAP 06/12/17 Oxybutynin Chloride* (Ditropan* XL) 10 Mg Tab.er.24, 10 MG PO DAILY, TAB.SA 06/12/17 Lorazepam* (Lorazepam*) 1 Mg Tablet, 1 MG PO BID Y for ANXIETY, #30 TAB 06/12/17 Citalopram Hydrobromide* (Celexa*) 20 Mg Tablet, 20 MG PO DAILY, #30 TAB 06/12/17 Triamterene/Hctz* (Maxzide (37.5-25)*) 1 Each Tablet, 1 EACH PO DAILY, #30 TAB 06/12/17 Follow-up Plan Follow-up on postoperative appointment given at your previous preoperative exam. Primary Care Provider Ted Pratt Pending Labs Laboratory Tests Test 06/15/17 04:44 06/15/17 15:15 White Blood Count 8.010^3/ul (4.8-10.8) 8.310^3/ul (4.8-10.8) Red Blood Count 2.3710^6/ul (4.20-5.40) 2.8910^6/ul (4.20-5.40) Hemoglobin 7.2g/dl (12.0-16.0) 8.7g/dl (12.0-16.0) Hematocrit 21.8% (37.0-47.0) 26.2% (37.0-47.0) Mean Corpuscular Volume 92.0fl (82.0-101.0) 90.7fl (82.0-101.0) Mean Corpuscular Hemoglobin 30.4pg (29.0-33.0) 30.1pg (29.0-33.0) Mean Corpuscular Hemoglobin Concent 33.0g/dl (32.0-37.0) 33.2g/dl (32.0-37.0) Red Cell Distribution Width 15.6% (11.5-14.5) 15.6% (11.5-14.5) Platelet Count 64444^3/UL (140-415) 80456^3/UL (140-415) Mean Platelet Volume 10.5fl (7.4-10.4) 10.3fl (7.4-10.4) Neutrophils % 55.2% (39.0-77.0) 74.9% (39.0-77.0) Lymphocytes % 34.4% (15.0-51.0) 16.9% (15.0-51.0) Monocytes % 6.8% (0.0-11.0) 7.1% (0.0-11.0) Eosinophils % 2.8% (0.0-7.0) 0.4% (0.0-7.0) Basophils % 0.3% (0.0-2.0) 0.1% (0.0-2.0) Nucleated Red Blood Cells % 0.0/100WBC (0.0-0.0) 0.0/100WBC (0.0-0.0) Neutrophils # 4.410^3/ul (1.6-7.5) 6.210^3/ul (1.6-7.5) Lymphocytes # 2.710^3/ul (0.8-2.9) 1.410^3/ul (0.8-2.9) Monocytes # 0.510^3/ul (0.3-0.9) 0.610^3/ul (0.3-0.9) Eosinophils # 0.210^3/ul (0.0-0.5) 0.010^3/ul (0.0-0.5) Basophils # 0.010^3/ul (0.0-0.1) 0.010^3/ul (0.0-0.1) Nucleated Red Blood Cells # 0.010^3/ul (0.0-0.0) 0.010^3/ul (0.0-0.0) STACEY LOMBARDO PA-C Jun 15, 2017 15:42
[2017-06-15] MEDS: oxyCODONE 5 MG TAB PO PRN (17:39)
== END 2017-06-15 17:45 | disposition home health service (06) | DRG 467 ==
LOC: REC 09:15 → MS1 16:10
PROVIDERS: ADMIT Orthopaedic Surgery; ATTEND Orthopaedic Surgery
PROC: 0SP90JZ Removal of Synthetic Substitute from Right Hip Joint, Open Approach (ICD-10-PCS; 2017-06-12)
PROC: 0SR902A Replacement of Right Hip Joint with Metal on Polyethylene Synthetic Substitute, Uncemented, Open Approach (ICD-10-PCS; principal; 2017-06-12 12:30)
PROC: 30233N1 Transfusion of Nonautologous Red Blood Cells into Peripheral Vein, Percutaneous Approach (ICD-10-PCS; 2017-06-15)
DX: T84.090A Other mechanical complication of internal right hip prosthesis, initial encounter (principal); N17.9 Acute kidney failure, unspecified; T84.84XA Pain due to internal orthopedic prosthetic devices, implants and grafts, initial encounter; E66.9 Obesity, unspecified; Z96.641 Presence of right artificial hip joint; Z68.31 Body mass index [BMI] 31.0-31.9, adult; D50.9 Iron deficiency anemia, unspecified; Y83.8 Other surgical procedures as the cause of abnormal reaction of the patient, or of later complication, without mention of misadventure at the time of the procedure; I10 Essential (primary) hypertension; M19.90 Unspecified osteoarthritis, unspecified site; E03.9 Hypothyroidism, unspecified
CPT/HCPCS: 36430; 73530; 80048; 80053; 80061; 83540; 84436; 84479; 85025; 86850; 86900; 86901; 86920; 87070; 87075; 87081; 88300; 97116; 97161; 97167; 97530; C1713; J0131; J0690; J1100; J1885; J2250; J2274; J2370; J2405; J2710; J3010; J7030; J7120; J7121; P9016